=== PATIENT | male | born 1970 | race Hispanic/Latino ===

== ENCOUNTER 2017-09-13 17:07 | Observation (INO) | payer BC ==
[~2017-09-13] VITALS: Ht 172.7 cm; Wt 122.7 kg
[2017-09-13] MEDS ORDERED: ACETAMINOPHEN EXTRA STRENGTH 500 MG TABLET ONE (17:20)
[2017-09-13] MEDS ORDERED: SODIUM CHLORIDE 0.9% 1000ML 1,000 ML IV ONE (17:20)
[2017-09-13 17:50] LABS: BASOPHILS % (AUTO) 0.4 % (0.0-5.0); EOSINOPHILS % (AUTO) 0.8 % (0.0-8.0); HEMATOCRIT 44.3 % (42-54); LYMPHOCYTES % (AUTO) 11.5 % (21.0-51.0); MEAN CORPUSCULAR HEMOGLOBIN 32.4 pg (27.0-33.0); MEAN CORPUSCULAR VOLUME 89.9 fL (79-99); MONOCYTES % (AUTO) 1.9 % (3.0-13.0); NEUTROPHILS % (AUTO) 85.4 % (40.0-77.0); PLATELET COUNT (AUTO) 186 K/uL (130-400); RED BLOOD CELL COUNT(AUTO) 4.92 MIL/uL (4.50-6.20); RED CELL DISTRIBUTION WIDTH 13.2 % (11.0-15.5); WHITE BLOOD COUNT (AUTO) 6.4 K/uL (4.8-10.8)
[2017-09-13] MEDS ORDERED: SODIUM CHLORIDE 0.9% 1000ML 3,000 ML IV ONE (17:55)
[2017-09-13 18:07] LABS: CARBON DIOXIDE 23 mmol/L (21-32); CHLORIDE 100 mmol/L (101-111); CREATININE 1.1 mg/dL (0.5-1.5); GLOMERULAR FILTR. RATE CALC 76 mL/min (>60); GLUCOSE,RANDOM 112 mg/dL (70-105); POTASSIUM 4.3 mmol/L (3.5-5.1); SODIUM SERUM 134 mmol/L (136-145); UREA NITROGEN, BLOOD 13 mg/dL (7-18)
[2017-09-13 18:09] LABS: PROTHROMBIN TIME 10.5 SEC (9.6-11.6)
[2017-09-13 18:23] LABS: ALANINE AMINOTRANSFERASE 116 U/L (12-78); ALBUMIN 3.7 g/dL (3.5-5.0); ASPARTATE AMINOTRANSFERASE 79 U/L (10-37); BILIRUBIN,TOTAL 0.8 mg/dL (0.2-1.0); CREATINE KINASE MB < 0.5 ng/mL (0.5-3.6); CREATINE KINASE, TOTAL 258 U/L (21-232); MYOGLOBIN 216 ng/mL (10-92); TOTAL PROTEIN, SERUM 7.8 g/dL (6.0-8.3); TROPONIN I 0.07 ng/mL (0.00-0.06)
[2017-09-13] MEDS ORDERED: CEFTRIAXONE SODIUM 1 GM ONE (18:54)
[2017-09-13] MEDS ORDERED: ASPIRIN 325MG EC TAB 325 MG TABLET.DR PO ONE (18:54)
[2017-09-13] MEDS ORDERED: OSELTAMIVIR PHOSPHATE 75 MG CAP ONE (18:55)
[2017-09-13 19:27] LABS: BILIRUBIN,URINE Small (NEGATIVE); COLOR,URINE Dark Yellow (YELLOW); GLUCOSE, URINE (UA) Negative (NEGATIVE); KETONES,URINE Trace mg/dL (NEGATIVE); LEUKOCYTE ESTERASE ,URINE Negative (NEGATIVE); NITRATE,URINE Negative (NEGATIVE); OCCULT BLOOD,URINE Negative (NEGATIVE); PROTEIN,URINE POS 1+ (NEGATIVE)
[2017-09-13 19:33] LABS: APPEARANCE,URINE SLIGHTLY CLOUDY (CLEAR)
[2017-09-13] MEDS ORDERED: ONDANSETRON HCL 4 MG/2 ML VIAL ONE (19:40)
[2017-09-13 20:23] LABS: BACTERIA,URINE Rare /HPF (None Seen); RBC,URINE 0-1 /HPF (0-1); SQUAMOUS EPITHELIAL CELL,UR Rare /LPF (0-2)
[2017-09-13 20:24] LABS: MUCUS,URINE Few LPF (None Seen)
[2017-09-13] MEDS ORDERED: ACETAMINOPHEN 325 MG TAB ONE (23:36)
[2017-09-13] MEDS: IPRATROPIUM/ALBUTEROL SULFATE 3 ML SOLUTION IH SCH (23:44)
[2017-09-14] MEDS ORDERED: POTASSIUM CHLORIDE 20 MEQ ERTAB PO PRN (00:45)
[2017-09-14] MEDS ORDERED: ACETAMINOPHEN 325 MG TAB PO PRN (00:45)
[2017-09-14] MEDS ORDERED: LEVOFLOXACIN 500 MG/D5W 100 ML 100 ML IV SCH (00:45)
[2017-09-14] MEDS ORDERED: CLONIDINE HCL 0.1 MG TABLET PO PRN (00:45)
[2017-09-14] MEDS ORDERED: POTASSIUM CHLORIDE 20MEQ/100ML 100 ML IV PRN (00:45)
[2017-09-14] MEDS ORDERED: POTASSIUM CHLORIDE 10% ELIXIR 20 MEQ/15 ML UDCUP PO PRN (00:45)
[2017-09-14] MEDS ORDERED: LIDOCAINE HCL-MPF 1% 2ML VIAL IVP PRN (00:45)
[2017-09-14 01:48] LABS: CREATINE KINASE MB 0.7 ng/mL (0.5-3.6); TROPONIN I 0.19 ng/mL (0.00-0.06)
[2017-09-14 02:10] VITALS: BP 117/72
[2017-09-14] MEDS ORDERED: LOSA50TA37 PO (02:20)
[2017-09-14 03:40] VITALS: BP 102/57
[2017-09-14 04:02] LABS: BASOPHILS % (AUTO) 0.3 % (0.0-5.0); EOSINOPHILS % (AUTO) 0.1 % (0.0-8.0); HEMATOCRIT 36.6 % (42-54); LYMPHOCYTES % (AUTO) 10.5 % (21.0-51.0); MEAN CORPUSCULAR HEMOGLOBIN 32.5 pg (27.0-33.0); MEAN CORPUSCULAR HGB CONC 35.9 g/dL (32.0-36.0); MEAN CORPUSCULAR VOLUME 90.6 fL (79-99); MONOCYTES % (AUTO) 7.2 % (3.0-13.0); NEUTROPHILS % (AUTO) 81.9 % (40.0-77.0); PLATELET COUNT (AUTO) 176 K/uL (130-400); RED BLOOD CELL COUNT(AUTO) 4.04 MIL/uL (4.50-6.20); RED CELL DISTRIBUTION WIDTH 12.8 % (11.0-15.5); WHITE BLOOD COUNT (AUTO) 10.5 K/uL (4.8-10.8)
[2017-09-14 04:12] LABS: CREATININE 0.8 mg/dL (0.5-1.5); MAGNESIUM 1.8 mg/dL (1.80-2.40); POTASSIUM 3.8 mmol/L (3.5-5.1)
[2017-09-14] MEDS: SODIUM CHLORIDE 0.9% 1000ML 1,000 ML IV SCH ×2 (04:16→09:17)
[2017-09-14] MEDS: IPRATROPIUM/ALBUTEROL SULFATE 3 ML SOLUTION IH SCH ×2 (06:28→11:26)
[2017-09-14 06:58] LABS: CREATINE KINASE MB 0.7 ng/mL (0.5-3.6); TROPONIN I 0.09 ng/mL (0.00-0.06)
[2017-09-14 08:00] VITALS: BP 109/64
[2017-09-14] MEDS ORDERED: FAMOTIDINE 20MG TAB 20 MG TAB PO SCH (09:00)
[2017-09-14] MEDS ORDERED: ASPIRIN 325 MG TABLET PO SCH (09:00)
[2017-09-14] MEDS ORDERED: OSELTAMIVIR PHOSPHATE 75 MG CAP PO SCH (09:00)
[2017-09-14 11:00] VITALS: BP 115/66
[2017-09-14 16:00] VITALS: BP 123/71
== END 2017-09-14 18:55 | disposition home or self-care (01) ==
LOC: EDH 17:07 → EDHIP 18:45 → 3AH 09-14 01:51
PROVIDERS: ADMIT Internal Medicine; ATTEND Internal Medicine
DX: J10.1 Influenza due to other identified influenza virus with other respiratory manifestations (principal); R50.9 Fever, unspecified; I10 Essential (primary) hypertension; E86.0 Dehydration; J40 Bronchitis, not specified as acute or chronic
CPT/HCPCS: 36415 ×2; 71045; 80048; 80053; 80061; 81001; 82550 ×3; 82553 ×3; 83605 ×2; 83735; 83874 ×3; 84484 ×3; 85025 ×2; 85610; 85730; 87040 ×2; 87088; 87804 ×2; 93005 ×3; 94640 ×3; 94664; 96365; 99291; G0378 ×24; J0696; J1956; J2405; J7030 ×2